=== PATIENT | male | born 1995 | race Asian ===

== ENCOUNTER 2018-05-15 11:04 | Emergency (ER) | payer OTHER, MEDICAID ==
[~2018-05-15] VITALS: Ht 180.3 cm; Wt 78.9 kg
[2018-05-15 11:10] VITALS: BP 147/89
== END 2018-05-15 13:06 | disposition home or self-care (01) ==
LOC: ER 11:08
DX: S62.001A Unspecified fracture of navicular [scaphoid] bone of right wrist, initial encounter for closed fracture (principal); X50.1XXA Overexertion from prolonged static or awkward postures, initial encounter; Y93.89 Activity, other specified; Y92.89 Other specified places as the place of occurrence of the external cause; Y99.8 Other external cause status
CPT/HCPCS: 29125; 71046; 73100

== ENCOUNTER 2019-05-06 23:46 | Emergency (ER) | payer MEDICAID, OTHER ==
[~2019-05-06] VITALS: Ht 180.3 cm; Wt 68.0 kg
[2019-05-07 00:13] VITALS: BP 139/91
[2019-05-07] MEDS ORDERED: BACITRACIN INJ 50000 UNIT VIAL TOP ONE (01:50)
[2019-05-07] MEDS ORDERED: BACITRACIN TOP OINT 1 UD PKG TOP ONE (01:55)
[2019-05-07] MEDS ORDERED: LIDOCAINE 1% HCL (LOCAL ANESTH.) INJ 20ML MDV ID ONE (02:02)
[2019-05-07] MEDS ORDERED: TETANUS-DIPTH-ACEL PERTUSSIS 0.5ML SYRG IM ONE (02:23)
== END 2019-05-07 02:58 | disposition home or self-care (01) ==
LOC: ER 23:50
DX: S61.011A Laceration without foreign body of right thumb without damage to nail, initial encounter (principal); W26.8XXA Contact with other sharp object(s), not elsewhere classified, initial encounter; Y93.89 Activity, other specified; Y92.69 Other specified industrial and construction area as the place of occurrence of the external cause; Y99.8 Other external cause status
CPT/HCPCS: 12001; 90471; 90715; 99283; J2001